=== PATIENT | female | born 1955 | race Caucasian/White ===

== ENCOUNTER → 2018-03-24 09:54 | Outpatient (CLI) | payer OTHER, MEDICAID, SELFPAY ==
[2018-03-24 10:53] LABS: Alanine Aminotransferase 30 IU/L (9-52); Albumin 4.6 g/dL (3.5-5.0); Albumin Globulin Ratio 1.8 (1.0-2.8); Alkaline Phosphatase 41 U/L (38-126); Aspartate Aminotransferase 27 IU/L (14-36); Bilirubin Total 0.5 mg/dL (0.2-1.3); Blood Urea Nitrogen 12 mg/dL (7-17); Calcium 9.7 mg/dL (8.4-10.2); Carbon Dioxide 27 mmol/L (22-32); Chloride 100 mmol/L (98-107); Cholesterol 225 mg/dL (140-199); Estimated Glomerular Filt Rate > 60.0 mL/min (>60); Globulin 2.5 g/dL (1.7-4.1); Glucose 99 mg/dL (80-110); HDL Cholesterol 94 mg/dL (40-60); HEMOLYSIS < 15 (0-50); LDL Cholesterol Calculated 117 mg/dL (<100); Potassium 3.9 mmol/L (3.4-5.1); Sodium 140 mmol/L (137-145); Total Protein 7.1 g/dL (6.3-8.2); Triglycerides 68 mg/dL (35-150)
== END ==
PROVIDERS: PCP Family Medicine; Visit Provider Family Medicine
DX: Z00.00 Encounter for general adult medical examination without abnormal findings (principal); Z12.11 Encounter for screening for malignant neoplasm of colon; Z13.220 Encounter for screening for lipoid disorders
CPT/HCPCS: 36415; 80053; 80061

== ENCOUNTER → 2018-03-31 10:32 | Outpatient (CLI) | payer OTHER, MEDICAID, SELFPAY ==
[2018-04-02 17:14] LABS: Fecal Immunochemical Test NOT DETECTED
== END ==
PROVIDERS: PCP Family Medicine; Visit Provider Family Medicine
DX: Z12.11 Encounter for screening for malignant neoplasm of colon (principal)
CPT/HCPCS: 82274